=== PATIENT | male | born 1960 | race Caucasian/White ===

== ENCOUNTER 2017-06-15 14:12 | Emergency (ER) | payer MEDICARE, MEDICAID ==
[~2017-06-15] VITALS: Ht 188 cm; Wt 108.0 kg
[~2017-06-15 14:12] MED LIST: DIL100C PO; LEVO50TA8 PO; TOP100T PO
[2017-06-15 15:19] VITALS: BP 133/102
== END 2017-06-15 16:22 | disposition home or self-care (01) ==
LOC: ER 14:14
DX: S09.90XA Unspecified injury of head, initial encounter (principal); E78.00 Pure hypercholesterolemia, unspecified; Z79.899 Other long term (current) drug therapy; W19.XXXA Unspecified fall, initial encounter; Y93.89 Activity, other specified; Y92.89 Other specified places as the place of occurrence of the external cause; Y99.8 Other external cause status
CPT/HCPCS: 99284

== ENCOUNTER 2019-04-08 10:39 | Outpatient (CLI) | payer MEDICARE, MEDICAID | END 2019-04-08 23:59 | disposition home or self-care (01) | LOC: RAD 10:39 | PROVIDERS: ATTEND Psychiatry & Neurology Neurology | DX: G40.909 Epilepsy, unspecified, not intractable, without status epilepticus (principal); Z79.899 Other long term (current) drug therapy | CPT/HCPCS: 95816 ==

== ENCOUNTER 2022-09-29 02:32 | Emergency (ER) | payer MEDICARE, MEDICAID ==
--- NOTE | 2022-09-29 02:51 | NUR ---
pt has a c collar in place from EMS
[2022-09-29 03:24] LABS: BASOPHILS % (AUTO) 0.4 % (0-1); EOSINOPHILS # (AUTO) 0.1 X10'3 (0-0.9); EOSINOPHILS % (AUTO) 1.6 % (0-6); HEMATOCRIT 40.6 % (42.0-52.0); HEMOGLOBIN 13.5 g/dl (14.0-17.9); LYMPHOCYTES # (AUTO) 1.6 X10'3 (1.1-4.8); LYMPHOCYTES % (AUTO) 19.7 % (21-51); MEAN CORPUSCULAR HEMOGLOBIN 32.4 PG (27.0-31.0); MEAN CORPUSCULAR HGB CONC 33.4 g/dL (33.0-36.5); MEAN CORPUSCULAR VOLUME 97.1 FL (78-98); MEAN PLATELET VOLUME 9.6 FL (7.4-10.4); MONOCYTES # (AUTO) 0.4 X10'3 (0-0.9); MONOCYTES % (AUTO) 5.6 % (2-12); NEUTROPHILS # (AUTO) 5.9 X10'3 (1.8-7.7); NEUTROPHILS % (AUTO) 72.7 % (42-75); PLATELET COUNT 152 X10'3 (140-440); RED BLOOD COUNT 4.18 X10'6 (4.70-6.10); RED CELL DISTRIBUTION WIDTH 13.3 % (11.5-14.5)
[2022-09-29 03:27] LABS: ALANINE AMINOTRANSFERASE 16 U/L (12-78); ALBUMIN 3.3 G/DL (3.4-5.0); ALKALINE PHOSPHATASE 151 IU/L (46-116); ANION GAP 9 (8-16); ASPARTATE AMINO TRANSFERASE 7 U/L (10-37); BILIRUBIN,TOTAL 0.2 MG/DL (0.1-1.0); BLOOD UREA NITROGEN 22 MG/DL (7-18); BUN/CREATININE RATIO 22.2 (10.0-20.0); CALCIUM 8.4 MG/DL (8.5-10.1); CHLORIDE 109 MMOL/L (99-107); CREATININE 0.99 MG/DL (0.60-1.10); GLUCOSE 109 MG/DL (70-104); POTASSIUM 3.6 MMOL/L (3.5-5.1); SODIUM 142 MMOL/L (135-145); TOTAL CARBON DIOXIDE 23.8 MMOL/L (24-32); TOTAL PROTEIN 6.7 G/DL (6.4-8.2); eGFR 77 ML/MIN
[2022-09-29] MEDS ORDERED: TETanus/Pertussis (Acell)/Diphther VAC/PF (Tdap-Adult) 0.5ml syringe IMVAC ONE (03:35)
[2022-09-29] MEDS ORDERED: AMOX-580 PO (07:07)
--- NOTE | 2022-09-29 08:03 | NUR ---
Pt cleared from c-collar by provider. Called [facility] to give report to his RN Tom. [facility] [employer] called and pt has ETA to be p/u at 1pm to be taken back. Notified Tom.
[2022-09-29 12:06] VITALS: BP 131/92
== END 2022-09-29 13:58 | disposition home or self-care (01) ==
LOC: ER 02:32
DX: S01.81XA Laceration without foreign body of other part of head, initial encounter (principal); S01.21XA Laceration without foreign body of nose, initial encounter; E78.00 Pure hypercholesterolemia, unspecified; Z79.899 Other long term (current) drug therapy; W06.XXXA Fall from bed, initial encounter; Y93.89 Activity, other specified; Y92.89 Other specified places as the place of occurrence of the external cause; Y99.8 Other external cause status
CPT/HCPCS: 12013; 36415; 70450; 70486; 72125; 80053; 85025; 90471; 90715; 99285; A4349

== ENCOUNTER 2023-01-02 09:44 | Emergency (ER) | payer MEDICARE, MEDICAID ==
[~2023-01-02] VITALS: Ht 195.6 cm; Wt 78.0 kg
[2023-01-02 10:05] VITALS: TEMP 97.9
--- NOTE | 2023-01-02 10:30 | NUR ---
PT CAREGIVERS CARLOS AND FREEDOM AT BEDSIDE.
[2023-01-02] MEDS ORDERED: POLY17PO10 PO (11:34)
[2023-01-02 11:57] VITALS: BP 106/74; PULSE 55; RESP 14; O2SAT 97
== END 2023-01-02 13:02 | disposition home or self-care (01) ==
LOC: ER 09:44
DX: K59.00 Constipation, unspecified (principal); E78.00 Pure hypercholesterolemia, unspecified; Z88.2 Allergy status to sulfonamides; Z79.899 Other long term (current) drug therapy
CPT/HCPCS: 99284